=== PATIENT | male | born 1970 ===

== ENCOUNTER 2019-03-17 14:11 | Emergency (ER) | payer OTHER ==
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
[2019-03-17 14:30] VITALS: BP 124/80
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
[2019-03-17] MEDS ORDERED: KETOROLAC 60 MG/2 ML INJ IM ONE (15:25)
[2019-03-17] MEDS ORDERED: oxyCODONE /ACETAMINOPHEN 5-325MG TAB PO ONE (15:25)
[2019-03-17] MEDS ORDERED: CYCLOBENZAPRINE 10 MG TAB PO ONE (15:25)
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
== END 2019-03-17 17:27 | disposition home or self-care (01) ==
LOC: ED 14:11
DX: S20.219A Contusion of unspecified front wall of thorax, initial encounter (principal); V49.49XA Driver injured in collision with other motor vehicles in traffic accident, initial encounter; Y93.89 Activity, other specified; Y92.488 Other paved roadways as the place of occurrence of the external cause; Y99.8 Other external cause status
CPT/HCPCS: 71101; 96372; 99283; J1885